=== PATIENT | male | born 1995 | race Two or more races ===

== ENCOUNTER 2021-08-10 22:24 | Emergency (ER) | payer MEDICAID, OTHER ==
[~2021-08-10] VITALS: Ht 162.6 cm; Wt 61.2 kg
[2021-08-11 03:31] LABS: Basophils # (auto) 0 10 ^3/uL (0-0.2); Basophils % (auto) 0.5 % (0.0-2.0); Eosinophils # (auto) 0 10 ^3/uL (0-0.8); Eosinophils % (auto) 0.2 % (0.0-7.0); Hematocrit 45.6 % (41.0-53.0); Hemoglobin 15.6 g/dL (13.5-17.5); Lymphocytes # (auto) 1.7 10 ^3/uL (0.4-5.4); Lymphocytes % (auto) 19.1 % (10.0-50.0); Mean Corpuscular Hemoglobin 31.2 pg (28.0-32.0); Mean Corpuscular Hgb Conc. 34.2 g/dL (32.0-36.0); Mean Corpuscular Volume 91.3 fL (80.0-100.0); Monocytes # (auto) 0.6 10 ^3/uL (0-1.3); Monocytes % (auto) 6.4 % (0.0-12.0); Neutrophils # (auto) 6.4 10 ^3/uL (1.6-8.6); Neutrophils % (auto) 73.8 % (37.0-80.0); Red Blood Cells 4.99 10^6/uL (4.5-5.90); Red Cell Distribution Width 13.3 % (11.8-14.3); White Blood Cell 8.6 10^3/uL (4.4-10.8)
[2021-08-11 03:53] LABS: Albumin 4.2 g/dL (3.4-5.0); Anion Gap 6 (5-15); Blood Alcohol < 3.0 mg/dL (0-5); Blood Urea Nitrogen 7 mg/dL (7-18); Calcium 8.8 mg/dL (8.5-10.1); Carbon Dioxide 28 mmol/L (21-32); Chloride 102 mmol/L (98-107); Glucose 107 mg/dL (74-106); Magnesium 3.2 mg/dL (1.6-2.6); Sodium 136 mmol/L (136-145)
[2021-08-11 03:56] LABS: Alanine Aminotransferase 19 U/L (16-61); Alkaline Phosphatase 101 U/L (45-117); Aspartate Aminotransferase 17 U/L (15-37); BUN/Creatinine Ratio 10.8; Bilirubin, Total 0.6 mg/dL (0.2-1.0); GFR African American 192 mL/min; GFR Non-African American 159 mL/min; Total Protein 7.7 g/dL (6.4-8.2)
[2021-08-11 04:28] LABS: Salicylate < 1.7 mg/dL (2.8-20.0)
[2021-08-11 04:30] LABS: Acetaminophen < 2.0 ug/mL (10-30)
[2021-08-11] MEDS ORDERED: clonazePAM 0.5 MG TAB PO ONE (23:00)
[2021-08-11] MEDS ORDERED: OLANZapine 5 MG TAB PO ONE (23:00)
[2021-08-12] MEDS ORDERED: METHOCARBAMOL 500 MG TAB PO PRN (02:15)
[2021-08-12] MEDS ORDERED: TRAZ100T3 PO (09:16)
[2021-08-12] MEDS ORDERED: QUET100T38 PO (09:16)
[2021-08-12] MEDS: cloNIDine HCL 0.1 MG TAB PO SCH ×2 (10:00→22:00)
[2021-08-12] MEDS ORDERED: OLANZapine 5 MG TAB PO SCH (22:00)
[2021-08-12] MEDS ORDERED: PRAZOSIN HCL 1 MG CAP PO SCH (22:00)
[2021-08-12 23:48] VITALS: BP 99/57
[2021-08-13] MEDS ORDERED: QUEtiapine FUMARATE 100 MG TAB PO SCH (10:00)
== END 2021-08-13 00:10 | disposition short-term general hospital (02) ==
LOC: EDBD 22:24 → ER 22:29
DX: R45.851 Suicidal ideations (principal); Z20.822 Contact with and (suspected) exposure to COVID-19
CPT/HCPCS: 36415; 80053; 80320; 80329; 83735; 85025; 87426